=== PATIENT | male | born 1955 | race Caucasian/White ===

== ENCOUNTER 2020-01-22 22:21 | Emergency (ER) | payer OTHER ==
[~2020-01-22] VITALS: Ht 180.3 cm; Wt 100.9 kg
[2020-01-22] MEDS ORDERED: NAPR500ERA PO (23:15)
== END 2020-01-23 00:56 | disposition home or self-care (01) ==
LOC: ER 22:21
DX: L50.0 Allergic urticaria (principal); T39.315A Adverse effect of propionic acid derivatives, initial encounter
CPT/HCPCS: 99283; J7512